=== PATIENT | male | born 1990 | race Caucasian/White ===

== ENCOUNTER 2024-12-18 18:26 | Inpatient (IN) | payer BC, OTHER ==
[~2024-12-18] VITALS: Ht 182.9 cm; Wt 58.5 kg
[2024-12-18] MEDS ORDERED: LORAZEPAM 1 MG TABLET ONE (19:31)
[2024-12-18] MEDS: LORAZEPAM 1 MG TABLET PO ONE (19:34)
[2024-12-18 19:51] LABS: BASOPHILS # (AUTO) 0.1 K/uL (0.0-0.2); BASOPHILS % (AUTO) 0.7 % (0.0-2.0); EOSINOPHILS % (AUTO) 0.1 % (0.0-6.0); HEMATOCRIT 29 % (39-51); LYMPHOCYTES # (AUTO) 2.7 K/uL (0.8-4.8); LYMPHOCYTES % (AUTO) 14.9 % (20.0-44.0); MEAN CORPUSCULAR HEMOGLOBIN 22 PG (26.0-33.0); MEAN CORPUSCULAR HGB CONC 31 g/dl (31.0-36.0); MEAN CORPUSCULAR VOLUME 72 fL (80-96); MONOCYTES # (AUTO) 1.2 K/uL (0.1-1.30); MONOCYTES % (AUTO) 6.8 % (2.0-12.0); NEUTROPHILS # (AUTO) 13.9 K/uL (1.8-8.9); NEUTROPHILS % (AUTO) 77.5 % (43.0-81.0); RED BLOOD CELL COUNT(AUTO) 4.05 MIL/uL (4.5-6.0); RED CELL DISTRIBUTION WIDTH 18.2 % (11.5-15.0)
[2024-12-18 19:54] LABS: CARBON DIOXIDE 29 mmol/L (21-32); CHLORIDE 98 mmol/L (98-107); CREATININE 0.8 mg/dL (0.6-1.3); GLUCOSE 162 mg/dL (74-106); POTASSIUM 3.8 mmol/L (3.5-5.1); SODIUM SERUM 136 mmol/L (136-145); UREA NITROGEN, BLOOD 13 mg/dL (7-18)
[2024-12-18 19:56] LABS: PLATELET COUNT (AUTO) 1265 K/uL (150-450)
[2024-12-18 19:58] LABS: ALANINE AMINOTRANSFERASE 11 U/L (12-78); ALBUMIN 2.9 g/dL (3.4-5.0); ALKALINE PHOSPHATASE 118 U/L (46-116); ASPARTATE AMINOTRANSFERASE 7 U/L (15-37); BILIRUBIN,DIRECT 0.1 mg/dL (0.0-0.2); BILIRUBIN,TOTAL 0.2 mg/dL (0.2-1.0); TOTAL PROTEIN, SERUM 7.6 g/dL (6.4-8.2)
[2024-12-18 20:00] LABS: ACETAMINOPHEN <10 ug/ml (10-30); SALICYLATE 1.1 mg/dL (2.8-20.0)
[2024-12-18 20:01] LABS: ALCOHOL, BLOOD < 3 mg/dL (0-10)
[2024-12-18 20:14] LABS: ANISOCYTOSIS 1+; LYMPHOCYTES % (MANUAL) 12 % (16-48); MONOCYTES % (MANUAL) 1 % (0-11.0); NEUTROPHILS % (MANUAL) 87 (42-76); PLATELET ESTIMATE INCREASED
[2024-12-18 20:59] LABS: AMPHETAMINE, URINE NEGATIVE (NEGATIVE); BARBITURATE, URINE NEGATIVE (NEGATIVE); BENZODIAZEPINE, URINE NEGATIVE (NEGATIVE); CANNABINOID, URINE NEGATIVE (NEGATIVE); COCCAINE, URINE NEGATIVE (NEGATIVE); OPIATE, URINE NEGATIVE (NEGATIVE); PHENCYCLIDINE SCREEN,URINE NEGATIVE (NEGATIVE)
[2024-12-18] MEDS: IV NS 0.9% 1,000 ML BAG IV ONE (21:15)
[2024-12-18 21:22] LABS: APPEARANCE,URINE CLOUDY (CLEAR); BILIRUBIN,URINE NEGATIVE (NEGATIVE); BLOOD, URINE NEGATIVE Ery/uL (NEGATIVE); COLOR,URINE YELLOW (YELLOW); KETONES,URINE NEGATIVE (NEGATIVE); LEUKOCYTE ESTERASE ,URINE NEGATIVE (NEGATIVE); NITRITE, URINE NEGATIVE (NEGATIVE); PH,URINE 8.5 (5.0-8.0); PROTEIN,URINE TRACE mg/dl (NEGATIVE); UGLUCOSE NEGATIVE (NEGATIVE); UROBILINOGEN,URINE 0.2 EU/dL (0.2)
[2024-12-18 21:32] LABS: RBC,URINE 0-2 /HPF (0-2); WBC,URINE 0-2 /HPF (0-3)
[2024-12-18 21:33] LABS: ADD URINE CULTURE NO; BACTERIA,URINE Rare /HPF (None Seen); SQUAMOUS EPITHELIAL CELL,UR None Seen /HPF (None Seen); URINE AMORPHOUS PHOSPHATES Moderate /HPF (None Seen)
[2024-12-18] MEDS ORDERED: OLANZAPINE 5 MG TABLET ONE (23:27)
[2024-12-18] MEDS: OLANZAPINE 5 MG TABLET PO ONE (23:31)
[2024-12-19] MEDS: IV NS 0.9% 1,000 ML BAG IV ONE (04:48)
[2024-12-19] MEDS ORDERED: ONDANSETRON HCL/PF 4 MG/2 ML VIAL ONE ×2 (05:52→09:56)
[2024-12-19] MEDS: ONDANSETRON HCL/PF 4 MG/2 ML VIAL IV ONE ×2 (05:55→10:02)
[2024-12-19] MEDS ORDERED: LORAZEPAM INJ 2 MG/ML VIAL ONE (09:59)
[2024-12-19] MEDS: IV LR 1000 ML 1,000 ML BAG IV ONE (10:05)
[2024-12-19] MEDS: LORAZEPAM INJ 2 MG/ML VIAL IV ONE (10:05)
[2024-12-19 10:22] LABS: BASOPHILS % (AUTO) 0.1 % (0.0-2.0); HEMATOCRIT 25 % (39-51); HEMOGLOBIN 7.7 g/dL (13.5-17.5); LYMPHOCYTES # (AUTO) 2.3 K/uL (0.8-4.8); LYMPHOCYTES % (AUTO) 11.8 % (20.0-44.0); MEAN CORPUSCULAR HEMOGLOBIN 23 PG (26.0-33.0); MEAN CORPUSCULAR HGB CONC 31 g/dl (31.0-36.0); MEAN CORPUSCULAR VOLUME 73 fL (80-96); MONOCYTES # (AUTO) 1.7 K/uL (0.1-1.30); MONOCYTES % (AUTO) 8.9 % (2.0-12.0); NEUTROPHILS # (AUTO) 15.2 K/uL (1.8-8.9); NEUTROPHILS % (AUTO) 79.2 % (43.0-81.0); RED BLOOD CELL COUNT(AUTO) 3.39 MIL/uL (4.5-6.0); RED CELL DISTRIBUTION WIDTH 18.3 % (11.5-15.0); WHITE BLOOD COUNT (AUTO) 19.2 K/uL (4.3-11.0)
[2024-12-19 10:29] LABS: PLATELET COUNT (AUTO) 1084 K/uL (150-450)
[2024-12-19] MEDS ORDERED: HALOPERIDOL 5 MG TABLET ONE (10:32)
[2024-12-19] MEDS: HALOPERIDOL 5 MG TABLET PO ONE (10:36)
[2024-12-19] MEDS: HALOPERIDOL 1 MG TABLET PO ONE (10:43)
[2024-12-19 11:21] LABS: LYMPHOCYTES % (MANUAL) 13 % (16-48); MONOCYTES % (MANUAL) 7 % (0-11.0); NEUTROPHILS % (MANUAL) 80 (42-76); PLATELET ESTIMATE INCREASED
[2024-12-19 11:22] LABS: ANISOCYTOSIS 1+
[2024-12-19] MEDS ORDERED: ARIP400S IM (12:09)
[2024-12-19] MEDS ORDERED: PSYL0.4C2 PO (12:09)
[2024-12-19] MEDS ORDERED: BISA-79 PO (12:09)
[2024-12-19] MEDS ORDERED: OLAN5TAB3 PO (12:09)
[2024-12-19] MEDS ORDERED: HALO20TA7 PO (12:09)
[2024-12-19] MEDS ORDERED: CLOZ200T24 PO (12:09)
[2024-12-19] MEDS ORDERED: MAGN125C PO (12:09)
[2024-12-19] MEDS ORDERED: SENN8.6T19 PO (12:09)
[2024-12-19] MEDS ORDERED: ONDA4TAB11 PO (12:09)
[2024-12-19] MEDS ORDERED: TRAZ-182 PO (12:09)
[2024-12-19] MEDS ORDERED: LORAZEPAM 1 MG TABLET PO PRN (12:30)
[2024-12-19] MEDS ORDERED: Z GUARD REMEDY 4 OZ OINT TP PRN (12:30)
[2024-12-19] MEDS ORDERED: MAGNESIUM HYDROXIDE 30 ML UDC PO PRN (12:30)
[2024-12-19] MEDS ORDERED: IOHEXOL-350 100 ML VIAL IV ONE (12:55)
[2024-12-19] MEDS ORDERED: IV NS 0.9% 250 ML IV ONE (12:55)
[2024-12-19] MEDS ORDERED: ARIPIPRAZOLE 400 MG IM SCH (13:00)
[2024-12-19] MEDS ORDERED: OLANZAPINE 5 MG TABLET PO PRN (13:00)
[2024-12-19] MEDS ORDERED: SENNOSIDES 8.6 MG TABLET PO PRN (13:00)
[2024-12-19] MEDS: IV LR 1000 ML 1,000 ML IV PRN (13:26)
[2024-12-19 13:30] VITALS: BP 108/73; TEMP 99.7; O2SAT 99
[2024-12-19] MEDS: ACETAMINOPHEN 325 MG TABLET PO PRN (13:51)
[2024-12-19] MEDS: SOD FERRIC GLUC 125 MG in IV NS 0.9% 100 ML IV SCH (13:52)
[2024-12-19 16:05] VITALS: BP 115/75; TEMP 98.8; O2SAT 99
[2024-12-19] MEDS: NICOTINE PATCH (21MG) 21 MG PATCH.TD24 TD SCH (16:24)
[2024-12-19] MEDS: HALOPERIDOL 5 MG TABLET PO SCH (16:31)
[2024-12-19] MEDS: diphenhydrAMINE HCL 50 MG/ML VIAL IV ONE ×2 (17:00→23:48)
[2024-12-19] MEDS: CLOZAPINE 100 MG TABLET PO SCH (17:20)
[2024-12-19 20:00] VITALS: BP 108/71; TEMP 97.7; O2SAT 97
[2024-12-19] MEDS: HYDROXYUREA 500 MG CAPSULE PO SCH (20:00)
[2024-12-19] MEDS: ASPIRIN EC 81 MG TABLET.DR PO SCH (20:56)
[2024-12-19] MEDS: METOPROLOL TARTRATE 25 MG TABLET PO SCH (20:56)
[2024-12-19 21:49] LABS: C-REACTIVE PROTEIN 7.53 mg/dL (0.0-0.30); URIC ACID 2.2 mg/dL (2.6-7.2)
[2024-12-19 21:50] LABS: RHEUMATOID FACTOR SCREEN NEGATIVE (NEGATIVE)
[2024-12-19 22:02] LABS: THYROID STIMULATING HORMONE 0.58 uIU/mL (0.358-3.74)
[2024-12-19] MEDS: TRAZODONE 50 MG TABLET PO SCH (22:55)
[2024-12-19] MEDS: ACETAMINOPHEN 325 MG TABLET PO ONE (23:49)
[2024-12-20] VITALS (20 sets, daily range): BP systolic 91–114; BP diastolic 51–78; TEMP 98.1–99.2; O2SAT 95–99
[2024-12-20 06:39] LABS: BASOPHILS # (AUTO) 0.1 K/uL (0.0-0.2); BASOPHILS % (AUTO) 0.4 % (0.0-2.0); EOSINOPHILS % (AUTO) 0.2 % (0.0-6.0); HEMATOCRIT 22 % (39-51); HEMOGLOBIN 7.1 g/dL (13.5-17.5); LYMPHOCYTES # (AUTO) 3.6 K/uL (0.8-4.8); LYMPHOCYTES % (AUTO) 22.9 % (20.0-44.0); MEAN CORPUSCULAR HEMOGLOBIN 25 PG (26.0-33.0); MEAN CORPUSCULAR HGB CONC 32 g/dl (31.0-36.0); MEAN CORPUSCULAR VOLUME 77 fL (80-96); MONOCYTES # (AUTO) 1.2 K/uL (0.1-1.30); MONOCYTES % (AUTO) 7.5 % (2.0-12.0); NEUTROPHILS # (AUTO) 10.8 K/uL (1.8-8.9); PLATELET COUNT (AUTO) 758 K/uL (150-450); RED BLOOD CELL COUNT(AUTO) 2.87 MIL/uL (4.5-6.0); RED CELL DISTRIBUTION WIDTH 20.6 % (11.5-15.0); WHITE BLOOD COUNT (AUTO) 15.7 K/uL (4.3-11.0)
[2024-12-20 07:03] LABS: THYROID STIMULATING HORMONE 0.67 uIU/mL (0.358-3.74); URIC ACID 2.6 mg/dL (2.6-7.2)
[2024-12-20 07:29] LABS: CALCIUM, SERUM 8.3 mg/dL (8.5-10.1); CREATININE 0.6 mg/dL (0.6-1.3); MAGNESIUM 2.1 mg/dL (1.8-2.4); PHOSPHORUS 3.1 mg/dL (2.5-4.9); POTASSIUM 3.9 mmol/L (3.5-5.1)
[2024-12-20] MEDS: PANTOPRAZOLE 40 MG TABLET.DR PO SCH (07:30)
[2024-12-20] MEDS: ALLOPURINOL 100 MG TABLET PO SCH (10:13)
[2024-12-20] MEDS: CLONIDINE HCL 0.1 MG TABLET PO ONE (10:32)
[2024-12-20] MEDS: ONDANSETRON HCL/PF 4 MG/2 ML VIAL IVP PRN (11:29)
[2024-12-20] MEDS: ACETAMINOPHEN 325 MG TABLET PO ONE (14:33)
[2024-12-20] MEDS: diphenhydrAMINE HCL 50 MG/ML VIAL IV ONE (14:33)
[2024-12-20] MEDS: LORAZEPAM INJ 2 MG/ML VIAL IV ONE (22:00)
[2024-12-21] VITALS: BP 98/56; TEMP 98.8; O2SAT 95
[2024-12-21 04:00] VITALS: BP 93/62; TEMP 98.4; O2SAT 97
[2024-12-21 06:07] LABS: IMMUNOGLOBULIN A, SERUM 178 mg/dL (90-386); IMMUNOGLOBULIN G, SERUM 839 mg/dL (603-1613); IMMUNOGLOBULIN M, SERUM 82 mg/dL (20-172)
[2024-12-21 07:02] LABS: BASOPHILS # (AUTO) 0.1 K/uL (0.0-0.2); BASOPHILS % (AUTO) 0.4 % (0.0-2.0); EOSINOPHILS % (AUTO) 0.2 % (0.0-6.0); HEMATOCRIT 26 % (39-51); HEMOGLOBIN 8.1 g/dL (13.5-17.5); LYMPHOCYTES # (AUTO) 2.6 K/uL (0.8-4.8); LYMPHOCYTES % (AUTO) 14.3 % (20.0-44.0); MEAN CORPUSCULAR HEMOGLOBIN 25 PG (26.0-33.0); MEAN CORPUSCULAR HGB CONC 31 g/dl (31.0-36.0); MEAN CORPUSCULAR VOLUME 79 fL (80-96); MONOCYTES # (AUTO) 1.7 K/uL (0.1-1.30); MONOCYTES % (AUTO) 9.2 % (2.0-12.0); NEUTROPHILS # (AUTO) 13.8 K/uL (1.8-8.9); NEUTROPHILS % (AUTO) 75.9 % (43.0-81.0); PLATELET COUNT (AUTO) 722 K/uL (150-450); RED BLOOD CELL COUNT(AUTO) 3.27 MIL/uL (4.5-6.0); RED CELL DISTRIBUTION WIDTH 20.2 % (11.5-15.0); WHITE BLOOD COUNT (AUTO) 18.1 K/uL (4.3-11.0)
[2024-12-21 07:14] LABS: CALCIUM, SERUM 8.1 mg/dL (8.5-10.1); CREATININE 0.6 mg/dL (0.6-1.3); POTASSIUM 3.8 mmol/L (3.5-5.1)
[2024-12-21 07:15] LABS: IRON, SERUM 8 ug/dl (50-175); TOTAL IRON BINDING CAPACITY 222 ug/dl (250-450)
[2024-12-21 07:34] LABS: FERRITIN 127 ng/mL (8-388)
[2024-12-21 08:05] VITALS: BP 99/60; TEMP 98.4; O2SAT 95
[2024-12-21] MEDS ORDERED: LACTULOSE 10 G/15 ML UDC (PYXIS) PO PRN (09:00)
[2024-12-21] MEDS: POLYETHYLENE GLYCOL 3350 17 GM POWD.PACK PO SCH (09:00)
[2024-12-21 10:10] LABS: *SPE A/G RATIO 0.8 (0.7-1.7); *SPE ALBUMIN 2.5 g/dL (2.9-4.4); *SPE ALPHA-1-GLOBULIN 0.4 g/dL (0.0-0.4); *SPE GLOBULIN, TOTAL 3.1 g/dL (2.2-3.9); *SPE M-SPIKE Not Observed g/dL (Not Observed); *SPE PROTEIN TOTAL 5.6 g/dL (6.0-8.5); *SPEGAMMA GLOBULIN 0.7 g/dL (0.4-1.8)
[2024-12-21 11:07] LABS: *ANA ANTI-CENTROMERE B AB <0.2 AI (0.0-0.9); *ANA ANTI-DNA(DS) AB, QN 1 IU/mL (0-9); *ANA ANTI-JO-1 <0.2 AI (0.0-0.9); *ANA ANTICHROMATIN ANTIBODY <0.2 AI (0.0-0.9); *ANA RNP ANTIBODIES 0.2 AI (0.0-0.9); *ANA SJOGREN'S ANTI-SS-A <0.2 AI (0.0-0.9); *ANA SJOGREN'S ANTI-SS-B <0.2 AI (0.0-0.9); *ANAANTI-SCLERODERMA-70 AB <0.2 AI (0.0-0.9); *ANASMITH AB <0.2 AI (0.0-0.9)
[2024-12-21 12:05] VITALS: BP 110/59; TEMP 98.4; O2SAT 98
[2024-12-21] MEDS: SOD FERRIC GLUC 125 MG in IV NS 0.9% 100 ML IV SCH (14:41)
[2024-12-21 16:02] VITALS: BP 95/55; TEMP 98.8; O2SAT 98
[2024-12-21] MEDS: ENSURE ENLIVE 237 ML LIQUID (VANILLA) PO SCH (17:38)
[2024-12-21 20:00] VITALS: BP 90/49; TEMP 98.4; O2SAT 98
[2024-12-21] MEDS: SENNOSIDES 8.6 MG TABLET PO SCH (21:24)
[2024-12-22] VITALS: BP 90/54; TEMP 99.1; O2SAT 96
[2024-12-22 04:00] VITALS: BP 93/78; TEMP 99; O2SAT 97
[2024-12-22 07:00] LABS: BASOPHILS # (AUTO) 0.1 K/uL (0.0-0.2); BASOPHILS % (AUTO) 0.5 % (0.0-2.0); EOSINOPHILS % (AUTO) 0.2 % (0.0-6.0); HEMATOCRIT 23 % (39-51); HEMOGLOBIN 7.3 g/dL (13.5-17.5); LYMPHOCYTES # (AUTO) 2.9 K/uL (0.8-4.8); LYMPHOCYTES % (AUTO) 19.5 % (20.0-44.0); MEAN CORPUSCULAR HEMOGLOBIN 25 PG (26.0-33.0); MEAN CORPUSCULAR HGB CONC 32 g/dl (31.0-36.0); MEAN CORPUSCULAR VOLUME 80 fL (80-96); MONOCYTES # (AUTO) 1.1 K/uL (0.1-1.30); MONOCYTES % (AUTO) 7.5 % (2.0-12.0); NEUTROPHILS # (AUTO) 10.6 K/uL (1.8-8.9); NEUTROPHILS % (AUTO) 72.3 % (43.0-81.0); PLATELET COUNT (AUTO) 725 K/uL (150-450); RED CELL DISTRIBUTION WIDTH 20.8 % (11.5-15.0); WHITE BLOOD COUNT (AUTO) 14.7 K/uL (4.3-11.0)
[2024-12-22 07:13] LABS: CALCIUM, SERUM 8.4 mg/dL (8.5-10.1); CREATININE 0.6 mg/dL (0.6-1.3); MAGNESIUM 2.3 mg/dL (1.8-2.4); PHOSPHORUS 3.6 mg/dL (2.5-4.9); POTASSIUM 3.5 mmol/L (3.5-5.1)
[2024-12-22 08:00] VITALS: BP 102/64; TEMP 98.8; O2SAT 96
[2024-12-22] MEDS: CEFEPIME 2 GM in IV D5W 100 ML IV SCH (08:30)
[2024-12-22 12:00] VITALS: BP 95/63; TEMP 98.8; O2SAT 99
[2024-12-22] MEDS: VANCOMYCIN HCL 1.25 GM in IV D5W 250 ML IV SCH (12:05)
[2024-12-22 16:00] VITALS: BP 110/58; TEMP 98.4; O2SAT 98
[2024-12-22 20:00] VITALS: BP 108/68; TEMP 98.6; O2SAT 99
[2024-12-23] VITALS (7 sets, daily range): BP systolic 84–111; BP diastolic 53–68; TEMP 97.9–98.6; O2SAT 98–99
[2024-12-23 06:53] LABS: BASOPHILS # (AUTO) 0.1 K/uL (0.0-0.2); BASOPHILS % (AUTO) 0.7 % (0.0-2.0); EOSINOPHILS % (AUTO) 0.4 % (0.0-6.0); HEMATOCRIT 25 % (39-51); HEMOGLOBIN 7.9 g/dL (13.5-17.5); LYMPHOCYTES # (AUTO) 2.8 K/uL (0.8-4.8); MEAN CORPUSCULAR HEMOGLOBIN 25 PG (26.0-33.0); MEAN CORPUSCULAR HGB CONC 32 g/dl (31.0-36.0); MEAN CORPUSCULAR VOLUME 79 fL (80-96); MONOCYTES # (AUTO) 0.8 K/uL (0.1-1.30); MONOCYTES % (AUTO) 7.5 % (2.0-12.0); NEUTROPHILS # (AUTO) 6.5 K/uL (1.8-8.9); NEUTROPHILS % (AUTO) 63.4 % (43.0-81.0); PLATELET COUNT (AUTO) 829 K/uL (150-450); RED CELL DISTRIBUTION WIDTH 21.5 % (11.5-15.0); WHITE BLOOD COUNT (AUTO) 10.2 K/uL (4.3-11.0)
[2024-12-23 07:24] LABS: CALCIUM, SERUM 8.5 mg/dL (8.5-10.1); CREATININE 0.7 mg/dL (0.6-1.3); MAGNESIUM 2.3 mg/dL (1.8-2.4); PHOSPHORUS 3.7 mg/dL (2.5-4.9); POTASSIUM 3.7 mmol/L (3.5-5.1)
[2024-12-23 16:03] LABS: HIV-1 p24 ANTIGEN NON REACTIVE (NONREACTIVE); HIV-1/2 ANTIBODY NON REACTIVE (NONREACTIVE)
[2024-12-24 04:00] VITALS: BP 94/53; TEMP 98.6; O2SAT 98
[2024-12-24 07:00] VITALS: BP 120/70
[2024-12-24 08:00] VITALS: BP 115/72; TEMP 97.9; O2SAT 100
[2024-12-24 12:00] VITALS: BP 119/69; TEMP 98.2; O2SAT 100
[2024-12-25 03:11] LABS: *THYROGLOBULIN <1.0 IU/mL (0.0-0.9); THYROGLOBULIN BY IMA 10.1 ng/mL (1.4-29.2)
== END 2024-12-24 17:28 | disposition home or self-care (01) | DRG 815 ==
LOC: ER 18:47 → TELE-TD 12-19 11:56 → TELE1 12-20 09:30 → TELE-TD 12-23 18:21 → TELE1 12-23 19:36
PROVIDERS: ADMIT Nurse Practitioner Family; ATTEND Nurse Practitioner Family
PROC: 30233N1 Transfusion of Nonautologous Red Blood Cells into Peripheral Vein, Percutaneous Approach (ICD-10-PCS; principal; 2024-12-20)
PROC: 05HA33Z Insertion of Infusion Device into Left Brachial Vein, Percutaneous Approach (ICD-10-PCS; 2024-12-20)
DX: D75.838 Other thrombocytosis (principal); F20.0 Paranoid schizophrenia; G82.20 Paraplegia, unspecified; I31.39 Other pericardial effusion (noninflammatory); D50.9 Iron deficiency anemia, unspecified; D72.829 Elevated white blood cell count, unspecified; E07.9 Disorder of thyroid, unspecified; K44.9 Diaphragmatic hernia without obstruction or gangrene; F41.9 Anxiety disorder, unspecified; E88.09 Other disorders of plasma-protein metabolism, not elsewhere classified; R00.0 Tachycardia, unspecified; M21.372 Foot drop, left foot; M21.371 Foot drop, right foot
CPT/HCPCS: 36415; 70450-TC; 71045-TC; 76536-TC; 80048-TC; 80076-TC; 80202-TC; 81001; 82378; 82550-TC; 82607-TC; 82728-TC; 82784; 82962-TC; 83540-TC; 83615-TC; 83690-TC; 83735-TC; 84100-TC; 84155; 84165; 84443-TC; 84484-TC; 84550-TC; 85025-TC; 85378-TC; 86140-TC; 86225; 86235; 86334; 86431-TC; 86803; 86850-TC; 87040-TC; 87806; 93307-TC; A4223; A4349; G0378; G0480; J0692; J1200; J2060; J2405; J2916; J7030; J7050; J7060; J7120; P9016; Q9967